=== PATIENT | male | born 1985 | race Caucasian/White ===

== ENCOUNTER 2023-07-29 13:44 | Emergency (ER) | payer BC, SELFPAY ==
[2023-07-29] VITALS (22 sets, daily range): BP systolic 122–163; BP diastolic 78–104; PULSE 75–115; RESP 7–20; TEMP 36.9; O2SAT 98
--- NOTE | 2023-07-29 13:30 | RT.EKG_ITS ---
APPROVED REPORT Exam: Resting ECG Reason for Exam: chest pain Patient Location: E HR:117 bpm ECG Measurements Heart Rate 117 AXIS NC 149 P 71 QRSd 103 QRS -24 QT 326 T 61 QTc 456 Conclusion Sinus tachycardia...rate> 99 Probable left atrial enlargement...P >50mS, <-0.10mV V1 Inferior infarct, old...Q >35mS, II III aVF sinus tachycardia, normal axis, leander itnervals, non ischemic
--- NOTE | 2023-07-29 13:45 | DI.RAD_ITS ---
Exam(s) XR CHEST 2V PA LATERAL EXAM: XR CHEST 2V PA LATERAL CLINICAL HISTORY: chest pain, meth use TECHNIQUE: 2D digital imaging was performed. COMPARISON: No exams were available for comparison FINDINGS: HEART: Normal size. Aorta: Not dilated. PULMONARY VASCULATURE: Normal. LUNGS: Clear. PLEURAL SPACE: No pleural effusion or pneumothorax. BONE:Unremarkable for age. IMPRESSION: No acute abnormality. DATA REPOSITORY: RADIATION DOSE DELIVERED:
[2023-07-29 14:04] LABS: Abs Immature Grans 0.01 10^3/uL (0.0-0.06); Absolute Basophil Count 0.04 10^3/uL (0.0-0.2); Absolute Eosinophil Count 0.05 10^3/uL (0.0-0.7); Absolute Lymphocyte Count 1.74 10^3/uL (1.2-3.4); Absolute Monocyte Count 0.45 10^3/uL (0.1-0.8); Absolute Neutrophil Count 3.78 10^3/uL (1.2-6.7); Basophils % 0.7; Eosinophils % 0.8; HCT 43.4 % (40.0-50.0); HGB 14.6 g/dL (13.5-17.5); Immature Grans % 0.2; Lymphocytes % 28.7; MCH 30.4 pg (27.0-33.0); MCHC 33.6 % (32.0-36.0); MCV 90 fL (80-95); MPV 10.5 fL (8.0-11.0); Monocytes % 7.4; Neutrophils % 62.2; Platelet Count 262 10^3/uL (130-400); RBC 4.81 10^6/uL (4.36-5.78); RDW 11.3 % (11.8-14.1); RDW-SD 37.5 fL; WBC 6.07 10^3/uL (4.4-10.8)
[2023-07-29] MEDS: Aspirin 81 MG CHEW 324 MG CH (14:05)
[2023-07-29] MEDS: LORazepam 2 MG/ML VIAL 1 MG IVP (14:05)
[2023-07-29] MEDS: Normal Saline 1,000 ML 1000 ML IV (14:06)
[2023-07-29 14:17] LABS: INR 1.1 (0.9-1.1); PTT Activated 26.3 sec (23.6-32.8); Prothrombin Time 10.7 sec (9.1-11.1)
[2023-07-29 14:36] LABS: ALT 23 U/L (16-63); AST 12 U/L (15-37); Alkaline Phosphatase 64 U/L (46-116); Anion Gap 8.1 mmol/L (3-11); BUN 19 mg/dL (7-18); Bilirubin, Total 0.3 mg/dL (0.2-1.0); CO2 28.9 mmol/L (21.0-32.0); Calcium 9.7 mg/dL (8.5-10.1); Chloride 103 mmol/L (98-107); Estimated GFR 98.18 (mL/min/1.73m2); Glucose 108 mg/dL (74-106); Magnesium 2.1 mg/dL (1.8-2.4); NT-proBNP 19 pg/mL (<300); Potassium 3.7 mmol/L (3.5-5.1); Sodium 140 mmol/L (136-145); TSH (W/Ref FT4) 1.19 uIU/mL (0.36-3.74); Total Protein 7.7 g/dL (6.4-8.2); Troponin I < 50 ng/L (<or=60)
--- NOTE | 2023-07-29 14:37 | ED.GENADUL_ITS ---
Discharge Plan Disposition Patient Disposition: Home Condition: Improving Discharge Details Chief Complaint: Chest Pain Clinical Impression: Chest pain, Amphetamine abuse ED Provider: Reed Hidalgo Home Meds and New Rx's Prescriptions: No Action No Known Home Meds Discharge Instructions Instructions: Chest Pain (ED), Methamphetamine Abuse (ED) Stand Alone Forms: Work Release Medical Decision Making 38-year-old male presents with anterior chest discomfort nonradiating and shortness of breath over the past couple of days, worse today after taking methamphetamine. Denies history of coronary disease or thromboembolic disease. EKG sinus tachycardia nonischemic. No to be hypertense tachycardic on arrival likely related to recent methamphetamine use. Must also consider ACS versus less likely aortic pathology lower suspicion for PE pneumonia or pneumothorax. Will obtain screening labs x-ray troponin, fluids benzodiazepine close reassessment 15: 29 patient resting comfortably no acute distress chest pain-free no shortness of breath. Hemodynamically stable blood pressure is decreased and status of the heart rate after benzo and fluid. Likely symptoms related to methamphetamine use HPI General Date/Time Provider Initiated Documentation: 07/29/23 13:45 . HPI Narrative: 38-year-old male presents with chest discomfort under his right pectoralis over the last couple of days, worse this morning in the setting of using methamphetamine. Denies history of coronary disease or thromboembolic disease. No recent travel no recent injury no leg pain or swelling. Related Data Home Medications Medication Instructions Recorded Confirmed Unknown [No Known Home Meds] 07/29/23 07/29/23 Allergies Allergy/AdvReac Type Severity Reaction Status Date / Time No Known Allergies Allergy Unverified 07/29/23 14:02 General Stated Complaint: Chest Pain HERNAN: 3 Review of Systems Narrative: Review of Systems Constitutional: negative Eyes: negative ENT: negative Cardiovascular: Chest pain Respiratory: Shortness of breath Gastrointestinal: negative : negative Musculoskeletal: negative Skin: negative Neurologic: negative Psych: negative PFSH All Active Problems (Updated 07/29/23 @ 15:31 by Reed Hidalgo MD) Amphetamine abuse (Acute) Chest pain (Acute) Social History Smoking/Tobacco Use Status: Former Tobacco Use Smoking risk assessment performed?: Yes Substance use type: methamphetamine Details: daily for 3 days take a break for 2 weeks Housing: apartment Do you feel safe at home: Yes Do you feel safe in your relationship?: Yes Exam Narrative Exam Narrative: Physical Examination General: alert, awake, cooperative, resting comfortably, no acute distress HEENT: normocephalic, atraumatic; PERRL, EOM intact, conjunctiva normal; no nasal discharge; moist mucous membranes, oral and pharyngeal mucosa normal, tolerating secretions Neck: supple, trachea midline; full ROM Chest: normal to inspection Respiratory: normal respiratory effort, speaking in full sentences, clear to auscultation, no wheezing, rales or rhonchi Cardiac: Tachycardia, regular rhythm, S1S2 intact, no murmurs rubs or gallops GI: abdomen soft, non-tender, non-distended; no palpable mass or hepatosplenomegaly Skin: no lesions, rashes or trauma appreciated Neuro: AAOx3, normal speech, moving all extremities Extremities: No peripheral edema Psych: Appropriate mood and affect Course Vital Signs Vital signs: Vital Signs Temperature 36.9 C 07/29/23 13:46 Pulse 115 H 07/29/23 13:46 Respiratory Rate 20 07/29/23 13:46 Blood Pressure 163/104 H 07/29/23 13:46 Pulse Oximetry 98 07/29/23 13:46 Temperature 36.9 C 07/29/23 13:46 Temperature Source Oral 07/29/23 13:46 Pulse 97 H 07/29/23 14:16 Pulse 104 H 07/29/23 14:16 Respiratory Rate 13 07/29/23 14:16 Respiratory Effort Normal 07/29/23 13:50 Respiratory Depth Normal 07/29/23 13:50 Respiratory Pattern Normal 07/29/23 13:50 Blood Pressure 131/99 H 07/29/23 14:16 Blood Pressure Mean 107 07/29/23 14:16 Blood Pressure Position Supine 07/29/23 13:46 Pulse Oximetry 98 07/29/23 13:46 Oxygen Delivery Method Room Air 07/29/23 13:46 Oxygen Flow Rate 0 07/29/23 13:46 Pain Level 0 07/29/23 13:46 Lab/Test Results Lab/Test Results: Laboratory Tests Range/Units 07/29/23 13:45 WBC (4.4-10.8) 10^3/uL 6.07 RBC (4.36-5.78) 10^6/uL 4.81 Hgb (13.5-17.5) g/dL 14.6 Hct (40.0-50.0) % 43.4 MCV (80-95) fL 90 MCH (27.0-33.0) pg 30.4 MCHC (32.0-36.0) % 33.6 RDW (11.8-14.1) % 11.3 L Plt Count (130-400) 10^3/uL 262 MPV (8.0-11.0) fL 10.5 Immature Gran % 0.2 Neutrophils % 62.2 Lymphocytes % 28.7 Monocytes % 7.4 Eosinophils % 0.8 Basophils % 0.7 Nucleated RBC % (0.0-0.3) % 0.0 Absolute Neutrophils (1.2-6.7) 10^3/uL 3.78 Absolute Lymphocytes (1.2-3.4) 10^3/uL 1.74 Absolute Monocytes (0.1-0.8) 10^3/uL 0.45 Absolute Eosinophils (0.0-0.7) 10^3/uL 0.05 Absolute Basophils (0.0-0.2) 10^3/uL 0.04 PT (9.1-11.1) sec 10.7 INR (0.9-1.1) 1.1 APTT (23.6-32.8) sec 26.3 TSH Cancelled PAWSS Have you Been Recently Intoxicated or Drunk Within the Last 30 days?: No Have you Ever Experienced Previous Episodes of Alcohol Withdrawal?: No Have you ever Experienced Withdrawal Seizures?: No Have you ever Experienced Delirium Tremens(DT)s?: No Have you ever undergone Alcohol Rehabilitation Treatment (i.e, inpt ot outpatient treatment programs)?: No Have you ever Experienced Blackouts?: No Have you ever Combined Alcohol with other Downers within the last 90 days?: No Have you ever Combined Alcohol with any other Substance of Abuse during the last 90 days?: No Positive Blood Alcohol level on Presentation? [PCS.BAL]: No Evidence of Increased Autonomic Activity (i.e. HR>120, tremor, sweating, agitation, nausea)?: No Result: 0
--- NOTE | 2023-07-29 15:48 | NUR.NOTE ---
Referral given to Care Management for needs PCP/ meth use, chest pain, establish care/ in 2 weeks. Nursing Note:
--- OUTSIDE RECORDS SUMMARY | 2023-07-29 15:50 | XMS_ITS | Continuity of Care Document ---
Author Name Unknown Organization [facility] Occupationa l Health Address [address] [place] [address] Encounter [facility]_MD FIN NBR [id number] Date(s): 01/05/23 - 01/05/23 [facility] Occupational Health [address] [place], [place] [address] Discharge Disposition: Home or Self Care Attending Physician: Susi Nolen PA-C Allergies, Adverse Reactions, Alerts No Known Medication Allergies Functional Status 01/05/23 Other exposure to Infectious Disease Non e Medications No Known Medications Problem List No Known Problems Vital Signs Most recent to oldest [Reference Range]: 1 Temperature Tympanic [36.6-37.9 Deg C] 3 6.4 Deg C *LOW* (01/05/23 11:13 AM) Peripheral Pulse Rate [60-100 bpm] 91 bp m (01/05/23 11:13 AM) Weight 78.47 kg (01/05/23 11:13 AM) Weight Measured (lbs) 172.997 lb (01/05/23 11:13 AM) Height 182.88 cm (01/05/23 11:13 AM) Height/Length Measured (inches) 72 inch (01/05/23 11:13 AM) BSA Measured 2 m2 (01/05/23 11:13 AM) Body Mass Index 23.46 kg/m2 (01/05/23 11:13 AM) Social History Social History Type Response Tobacco Current everyday tob acco user Tobacco Use:. Sex Physician Outpatient Note * Susi Nolen PA-C: PERFORM Event Display: Office Clinic Note Physician Authored Date: [id number] FRANCO MIKE :1985 Age:37 years Sex:Male Visit Date:01/05/2023 Chief Complaint pain and swelling improved History of Present Illness Patient is a 37-year-old [id number]??male who presents to the occupational office today??for??1 week follow-up of??workplace injury. ??There is no specific injury??but presumed to be repetitive use injury??as he is often doing??repetitive motions as part of his job duties.?He has noted significant improvement in the pain, swelling and range of motion. ??There has been no new injury. ??He has been using the Horace bandage??and resting the hand.?? No prior injury to the right hand or wrist. Physical Exam Vitals & Measurements T:??36.4?C ??(Tympanic)?? HR:??91??(Peripheral)?? SpO2:??100%?? HT:??182.88??cm?? WT:??78.47??kg?? BMI:??23.46?? Pain Score:??2?? BSA:??2?? He is well-appearing and in no acute distress, very pleasant, reliable historian Normal range of motion of the wrist joint??in flexion, extension, ulnar and radial deviation. No obvious swelling of the??dorsal hand. Very minimal reproducible tenderness of the??carpal bones??along dorsal aspect hand. ??No crepitus. Normal handgrip. ??Brisk cap refills. ??Two-point discrimination present. Medical Decision Making: Tendinitis right hand: 37-year-old male??who is experiencing right hand tendinitis??presumably due to??repetitive use??at his place of employment.?? He has reported considerable??improvement in symptoms with conservative treatment.?? He will be allowed to return to work without any restrictions and follow-up in 1 week for recheck. Problem List/Past Medical History Ongoing No chronic problems Historical No qualifying data Medications No active medications Allergies No Known Medication Allergies Social History Electronic Cigarette/Vaping Electronic Cigarette Use: Never. Tobacco Current everyday tobacco user Tobacco Use:. Electronically Signed on 01/05/23 11:27 AM Susi Nolen PA-C
--- OUTSIDE RECORDS SUMMARY | 2023-07-29 15:50 | XMS_ITS | Continuity of Care Document ---
Author Name Unknown Organization [facility] Address [address] [place] [address] Encounter [facility] FIN NBR [id number] Date(s): 12/27/22 - 12/27/22 [facility] [address] [place], [place] [address] Discharge Disposition: Home or Self Care Attending Physician: Chris Faye. VENITA Admitting Physician: Chris Faye. VENITA Allergies, Adverse Reactions, Alerts No Known Medication Allergies Assessment and Plan Future Appointments Problem List No Known Problems Results Laboratory List Name Date C-Reactive Protein 12/27/22 CBC w/ Diff 12/27/22 Sedimentation Rate (ESR) 12/27/22 Automated Diff 12/27/22 Most recent to oldest [Reference Range]: 1 WBC [4.8-10.8 K/mcL] 5.0 K/mcL (12/27/22 10:31 AM) RBC [4.20-6.10 Million/mcL] 4.46 Million /mcL (12/27/22 10:31 AM) Neutro Auto [42.2-75.2 %] 63.2 % (12/27/22 10:31 AM) Lymph Auto [20.5-51.1 %] 28.2 % (12/27/22 10:31 AM) Geary Auto [1.7-9.3 %] 7.0 % (12/27/22 10:31 AM) Basophil Auto [0.0-0.8 %] 0.8 % (12/27/22 10:31 AM) Baso Absolute [0.0-0.2 K/mcL] 0.0 K/mcL (12/27/22 10:31 AM) MCV [80.0-94.0 fL] 92.6 fL (12/27/22 10:31 AM) CRP [0.0-9.9] 8.6 (12/27/22 10:31 AM) MCHC [32.0-36.0 g/dL] 32.9 g/dL (12/27/22 10:31 AM) Lymph Absolute [1.2-3.4 K/mcL] 1.4 K/mcL (12/27/22 10:31 AM) Hct [42.0-52.0 %] 41.3 % *LOW* (12/27/22 10: AM) Geary Absolute [0.1-0.6 K/mcL] 0.4 K/mcL (12/27/22 10:31 AM) MCH [27.0-31.0 pg] 30.5 pg (12/27/22 10:31 AM) Neutro Absolute [1.4-6.5 K/mcL] 3.2 K/mc L (12/27/22 10:31 AM) Hgb [14.0-18.0 g/dL] 13.6 g/dL *LOW* (12/27/22 10:31 AM) MPV [7.4-10.4 fL] 10.6 fL *HI* (12/27/22 10:31 AM) Platelets [130-400 K/mcL] 236 K/mcL (12/27/22 10:31 AM) Eos Absolute [0.0-0.2 K/mcL] 0.0 K/mcL (12/27/22 10:31 AM) RDW-CV [11.5-14.5 %] 11.8 % (12/27/22 10:31 AM) Imm Gran Absolute 0.01 *NA* (12/27/22 10:31 AM) Imm Gran Auto [0.0-0.5 %] 0.2 % (12/27/22 10:31 AM) Eos, Auto [0.00-3.00 %] 0.60 % (12/27/22 10:31 AM) ESR, Westergren [0-15 mm/hr] 6 mm/hr (12/27/22 10:31 AM) Social History Social History Type Response Tobacco Current everyday tob acco user Tobacco Use:. Sex
--- OUTSIDE RECORDS SUMMARY | 2023-07-29 15:50 | XMS_ITS | Continuity of Care Document ---
Author Name Unknown Organization [facility] Address [address] [place] [address] Encounter [facility] FIN NBR [id number] Date(s): 12/27/22 - 12/27/22 [facility] [address] [place] [address]- Discharge Disposition: Home or Self Care Attending Physician: Chris Faye. PA Admitting Physician: Chris Faye. PA Allergies, Adverse Reactions, Alerts No Known Medication Allergies Assessment and Plan Future Appointments Problem List No Known Problems Results Radiology Reports * Exam Date Time Procedure Performing Provider Status 12/27/22 9:44 AM XR Hand Complete 3+ Views Right Ngozi Bryant (Verified) Notes: (XR Hand Complete 3+ Views Right) Reason For Exam: Dorsal hand pain with crepitus XR Hand Complete 3+ Views Right EXAM DESCRIPTION: XR Hand Complete 3+ Views Right 12/27/2022 INDICATION: DORSAL HAND PAIN WITH CREPITUS COMPARISON: None IMPRESSION: No acute fracture or dislocation No regional arthritic changes. MCP and IP joint spaces are relatively well maintained Mild dorsal hand region soft tissue swelling. No regional radiopaque soft tissue foreign body. JOB #: [id number] Final Signed by: Eric Roach MD Signed (Electronic Signature): 12/27/2022 9:47 am Social History Social History Type Response Tobacco Current everyday tob acco user Tobacco Use:. Sex XR Hand - right GE 3 Views * Eric Roach MD: VERIFY, VERIFY Event Display: Report EXAM DESCRIPTION: XR Hand Complete 3+ Views Right 12/27/2022 INDICATION: DORSAL HAND PAIN WITH CREPITUS COMPARISON: None IMPRESSION: No acute fracture or dislocation No regional arthritic changes. MCP and IP joint spaces are relatively well maintained Mild dorsal hand region soft tissue swelling. No regional radiopaque soft tissue foreign body. JOB #: [id number] Final Signed by: Eric Roach MD Signed (Electronic Signature): 12/27/2022 9:47 am
== END 2023-07-29 15:47 | disposition home or self-care (01) ==
LOC: ER 15:48
PROVIDERS: Emergency Provider Emergency Medicine
DX: F15.10 Other stimulant abuse, uncomplicated (principal); R07.9 Chest pain, unspecified
CPT/HCPCS: 80053; 93005; 96365; 96375; 99285; 71046; 83735; 83880; 84443; 84484; 85025; 85610; 85730; 93010; 99284; J2060

== ENCOUNTER 2024-06-24 21:40 | Outpatient (REF) | payer SELFPAY ==
[2024-06-24 22:07] LABS: Abs Immature Grans 0.02 10^3/uL (0.0-0.06); Absolute Basophil Count 0.05 10^3/uL (0.0-0.2); Absolute Eosinophil Count 0.07 10^3/uL (0.0-0.7); Absolute Lymphocyte Count 2.37 10^3/uL (1.2-3.4); Absolute Neutrophil Count 3.88 10^3/uL (1.2-6.7); Basophils % 0.7 %; HCT 41.3 % (40.0-50.0); HGB 13.9 g/dL (13.5-17.5); Immature Grans % 0.3 %; Lymphocytes % 34.4 %; MCH 30.3 pg (27.0-33.0); MCHC 33.7 % (32.0-36.0); MCV 90 fL (80-95); MPV 10.5 fL (8.0-11.0); Monocytes % 7.3 %; Neutrophils % 56.3 %; Platelet Count 270 10^3/uL (130-400); RBC 4.58 10^6/uL (4.36-5.78); RDW 11.6 % (11.8-14.1); RDW-SD 37.9 fL; WBC 6.89 10^3/uL (4.4-10.8)
[2024-06-24 23:07] LABS: ALT 30 U/L (16-63); AST 19 U/L (15-37); Albumin 4.5 g/dL (3.4-5.0); Alkaline Phosphatase 79 U/L (46-116); Anion Gap 11.6 mmol/L (3-11); BUN 23 mg/dL (7-18); Bilirubin, Total 0.47 mg/dL (0.2-1.0); CO2 26.4 mmol/L (21.0-32.0); CREATININE 0.9 mg/dL (0.70-1.30); Chloride 103 mmol/L (98-107); Estimated GFR 110.73 (mL/min/1.73m2); Glucose 92 mg/dL (74-106); Lipase 40 U/L (16-77); Potassium 4.2 mmol/L (3.5-5.1); Sodium 141 mmol/L (136-145); Total Protein 7.7 g/dL (6.4-8.2)
== END 2024-06-24 21:41 | disposition home or self-care (01) ==
LOC: LBN 21:40
PROVIDERS: Visit Provider Physician Assistant Medical
DX: R10.9 Unspecified abdominal pain (principal)
CPT/HCPCS: 80053; 83690; 85025

== ENCOUNTER 2024-10-26 14:23 | Outpatient (REF) | payer OTHER, SELFPAY ==
[2024-10-26 15:42] LABS: Bilirubin Negative (Negative); Blood Negative (Negative); Clarity Clear (Clear); Glucose Negative (Negative); Ketones Negative (Negative); Leukocyte Esterase Negative (Negative); Nitrite Negative (Negative); Urobilinogen 0.2 mg/dL (Up to 0.2)
== END 2024-10-26 14:24 | disposition home or self-care (01) ==
LOC: NCHCN 14:23
PROVIDERS: Visit Provider Family Medicine
DX: R39.9 Unspecified symptoms and signs involving the genitourinary system (principal)
CPT/HCPCS: 81003

== ENCOUNTER 2025-03-28 14:10 | Emergency (ER) | payer SELFPAY ==
[2025-03-28] VITALS (30 sets, daily range): BP systolic 114–143; BP diastolic 67–96; PULSE 72–92; RESP 7–20; TEMP 36.7; O2SAT 82–100
--- NOTE | 2025-03-28 14:22 | ED.GENADUL_ITS ---
Discharge Plan Discharge Details Chief Complaint: OD/Poison Clinical Impression: Respiratory depression, Pinpoint pupils, Accidental opiate poisoning Primary Care Provider: Unknown,Unknown ED Provider: Eric Singh Home Meds and New Rx's Prescriptions: No Action No Known Home Meds HPI General Date/Time Provider Initiated Documentation: 03/28/25 14:12 . HPI Narrative: MDM This is a dehydrated appearing normothermic and not tachycardic 39-year-old male with recent substance use concerning for the possibility of opiate toxidrome given pinpoint pupils and decreased respiratory rate for which patient will receive observation in the emergency department. Given patient routinely uses meth there is of the possibility that he could be getting opiates alongside his meth. Has resolved even though he denies chronic opiate use will defer naloxone reversal. His ECG shows slight interventricular conduction delay with a QRS of 111 ms. He has a normal axis and ST segments are without depressions or elevations. QTc was within normal limits. In the absence of chest pain will defer troponin testing. Will ensure patient can pass ambulatory trial and p.o. trial in the emergency department prior to anticipated discharge. 4:55 PM Patient continues to be alert oriented. He saturating well on room air. He tolerated some p.o. liquids. He required an ambulatory trial and a p.o. trial in the ED. We have discussed avoiding medications and drugs off the street. HPI This is a patient with a history of asthma presenting with symptoms following methamphetamine use. The patient arrived at the ED on foot. The patient reports snorting methamphetamine approximately 1.5 hours prior to arrival. Since then, he has experienced increased fatigue, a sensation fabiola to entering a dream-like state, and numbness in his stomach and shoulders. He also reports feelings of nausea. He is not experiencing any chest pain or difficulty breathing. The patient was feeling normal this morning and has not been exposed to a generator or undergone any chiropractic neck manipulations recently. Exam General: Well-appearing in no acute distress speaking in complete sentences. Head: Normocephalic, atraumatic. Eye:[Pupils equal, round reactive to light.] Pupils equal reactive 2 to 1 mm. Extraocular eye movements intact. No conjunctival injection. No scleral icterus. Ear, nose, mouth, throat: Grossly normal inspection. Normal voice, handling secretions normally. Neck: Trachea midline. Cardiovascular: Well-perfused distal extremities. Regular rate and rhythm. Respiratory: Nonlabored respiration. Clear lungs bilaterally. Gastrointestinal: Nondistended abdomen. Soft nontender. Musculoskeletal: No edema. Moving all 4 extremities spontaneously. Skin: Normal for age and race, grossly normal temperature and turgor. No acute rash. Neurologic: Alert and appropriate, no apparent acute deficits. GCS 15. Psychiatric: Mood and manner are appropriate. Grooming and personal hygiene are appropriate. Related Data Home Medications ?Medication ?Instructions ?Recorded ?Confirmed Unknown [No Known Home Meds] 07/29/23 0 03/28/25 Allergies Allergy/AdvReac Type Severity Reaction Status Date / Time No Known Allergies Allergy Verified 03/28/25 14:16 General HERNAN: 3 PFSH All Active Problems (Updated 03/28/25 @ 16:58 by Eric Singh MD) Accidental opiate poisoning (Acute) Pinpoint pupils (Acute) Respiratory depression (Acute) Social History Smoking/Tobacco Use Status: Former Tobacco Use Smoking risk assessment performed?: Yes Alcohol Intake: current Alcohol Intake frequency: holidays/special occasions only Drug use: Daily Substance use type: methamphetamine Details: daily for 3 days take a break for 2 weeks Housing: apartment Do you feel safe at home: Yes Do you feel safe in your relationship?: Yes
--- NOTE | 2025-03-28 14:30 | RT.EKG_ITS ---
APPROVED REPORT Exam: Resting ECG Reason for Exam: drug use Patient Location: E HR:75 bpm ECG Measurements Heart Rate 75 AXIS NC 153 P 63 QRSd 111 QRS 24 QT 401 T 61 QTc 447 Conclusion Sinus rhythm...normal P axis, V-rate 60- 99 No Occlusion ME
[2025-03-28 14:53] LABS: Abs Immature Grans 0.02 10^3/uL (0.0-0.06); Absolute Basophil Count 0.03 10^3/uL (0.0-0.2); Absolute Eosinophil Count 0.06 10^3/uL (0.0-0.7); Absolute Lymphocyte Count 1.66 10^3/uL (1.2-3.4); Absolute Monocyte Count 0.41 10^3/uL (0.1-0.8); Basophils % 0.5 %; HCT 42.4 % (40.0-50.0); HGB 14.4 g/dL (13.5-17.5); Immature Grans % 0.3 %; Lymphocytes % 27.3 %; MCH 30.3 pg (27.0-33.0); MCV 89 fL (80-95); MPV 9.8 fL (8.0-11.0); Monocytes % 6.7 %; Neutrophils % 64.2 %; Platelet Count 252 10^3/uL (130-400); RBC 4.75 10^6/uL (4.36-5.78); RDW 11.3 % (11.8-14.1); RDW-SD 36.7 fL; WBC 6.08 10^3/uL (4.4-10.8)
[2025-03-28] MEDS: Normal Saline 1,000 ML 1000 ML IV (15:00)
[2025-03-28 15:13] LABS: BUN 19 mg/dL (7-18); CREATININE 0.8 mg/dL (0.70-1.30); Calcium 9.3 mg/dL (8.5-10.1); Chloride 103 mmol/L (98-107); Creatine Kinase 53 U/L (39-308); Estimated GFR 114.74 (mL/min/1.73m2); Glucose 123 mg/dL (74-106); Potassium 3.9 mmol/L (3.5-5.1); Sodium 141 mmol/L (136-145)
--- NOTE | 2025-03-28 18:06 | W.EDPROG ---
Date of service: 03/28/25 Time of Service: 18:08 Medical Decision Making Patient was signed out to me pending reassessment after overdose. Patient was evaluated here in the emergency department for last 4 hours, he is doing remarkably well. He is awake alert and oriented, he ambulated throughout the ED. He shows no signs of respiratory depression, significant altered mental status, or other abnormality. Pupils are reactive. He will be given Zofran for home use for nausea. Harm reduction packet has been given. Patient has not requested any additional support services at this time. Patient will be discharged home. Discussed red flags for which to return. I have extensively reviewed the treatment plan and discharge instructions with the patient. I have addressed all patient concerns at this time. The patient was made aware of what symptoms to monitor for that would warrant a return to the emergency department. Discussed the plan with the patient, they demonstrate verbal understanding and agreement with our assessment and plan at this time. The documentation in this chart was dictated using Relevant e-solution dictation software. Please excuse any dictation errors. Discharge Plan Disposition Patient Disposition: Home Condition: Good Discharge Details Clinical Impression: Respiratory depression, Pinpoint pupils, Accidental opiate poisoning Primary Care Provider: Unknown,Unknown ED Provider: Huber Horner Home Meds and New Rx's Prescriptions: No Action No Known Home Meds Discharge Instructions Instructions: Opioid Overdose Additional Instructions: Please avoid use of any drugs or illicit substances that could cause you personal harm. Please take the Zofran as needed for nausea. If you notice any worsening of your symptoms, or any new symptoms such as vomiting, diarrhea, fever, chills, shortness of breath, chest pain, numbness, weakness, or fainting , please return immediately to the emergency department for reevaluation. Please follow up with your primary care provider as soon as possible for reassessment and reevaluation. As always, it was a pleasure participating in your medical care today. Additionally you have been supplied with a harm reduction pack. Please use these resources as needed.
[2025-03-28] MEDS: Ondansetron O.D.T. 4 MG TABEF, 3 TABS/BTL PO (18:11)
== END 2025-03-28 18:18 | disposition home or self-care (01) ==
PROVIDERS: Emergency Medicine; Emergency Provider Student in an Organized Health Care Education/Training Program
DX: R06.89 Other abnormalities of breathing (principal); T40.601A Poisoning by unspecified narcotics, accidental (unintentional), initial encounter; H57.03 Miosis
CPT/HCPCS: 99284 ×2; 36415; 00123; 80048; 82550; 93005; 96360; 96361; 85025; 93010